=== PATIENT | female | born 1935 | race Caucasian/White ===

== ENCOUNTER → 2016-11-18 08:45 | Outpatient (CLI) | payer MEDICARE, OTHER ==
[~2016-11-18 08:45] MED LIST: ARMOUR THYROID30 MG PO; BENICAR HCT 20-1 TA1 PO; HYDROCHLOROTHIA25 MG PO
== END | disposition home or self-care (01) ==
LOC: D.CT 10-29 10:30
DX: C49.9 Malignant neoplasm of connective and soft tissue, unspecified (principal)

== ENCOUNTER → 2017-08-03 13:37 | Outpatient (CLI) | payer MEDICARE, OTHER ==
--- NOTE | ~2017-08-03 | EC ---
PATIENT:DONAVON BRENNAN DATE OF SERVICE: 08/03/17 SEX: F MEDICAL RECORD: [id number] DATE OF : 37 LOCATION:D.[facility] AGE OF PATIENT: 82 ADMISSION DATE: 08/03/17 REFERRING PHYSICIAN: INTERPRETING PHYSICIAN: PATRICK BORDEN MD ECHOCARDIOGRAM REPORT ECHO CHARGES 4 ECHO COMPLETE CLINICAL DIAGNOSIS: A-FIB/HTN/MURMUR/CHF/AVR ECHOCARDIOGRAPHIC MEASUREMENTS (adult normal given) AC root (d.<3.7cm) 3.3 cm LV Septum d (<1.2 cm> 1.8 cm Valve Excursion 0.9 cm LV Septum (systole) 2.1 cm Left Atria (s.<4.0cm> 3.3 cm LVPW d(<1.2cm) 1.5 cm RV (d.<2.3cm) 2.7 cm LVPW (sytole) 1.7 cm LV diastole(<5.6CM) 3.9 cm MV E-F(>70mm/sec) cm LV systole 1.2 cm LVOT Diameter 1.5 cm MV exc.(>10mm) cm Est.ejection fraction (50-75%) % Pericardial Effusion N DOPPLER: LVIT cm/sec A 57.0 cm/sec E 100 cm/sec LA cm/sec RVSP 38.1 mmHg LVOT 110 cm/sec AOP1/2T m/s Asc. Ao 378 cm/sec RVOT 61.0 cm/sec RA cm/sec PA 100 cm/sec AV Gradient Peak 57.3 mmHg AV Mean 34.0 mmHg AV Area 0.5 cm MV Gradient Peak 4.2 mmHg MV Mean 1.5 mmHg MV Area cm COMMENTS: Auto Body Repairer Fiberglass: David PEREZOE Prospecting Driller: Estelle Borden TAPE# PACS DATE OF SERVICE: 08/03/2017 FINDINGS: 1. Left ventricle appears to have mild left ventricular hypertrophy. There are no obvious regional wall motion abnormalities. Inflow characteristics are normal. Overall, ejection fraction is 60% to 65%. 2. The mitral valve and anterior leaflet have mild thickening. There is [id number] mitral regurgitation that is centralized. 3. The left atrium appears to be normal size, normal shape, normal function. 4. The interatrial septum is thin, but there is no evidence of ASD or PFO. ECHOCARDIOGRAM REPORT [id number] DONAVON BRENNAN 5. The right ventricle has mild right ventricular hypertrophy, but normal size and normal function. 6. The right atrium is normal size, normal function. 7. The aortic valve is difficult to visualize, appears to be thickened. There is a history of aortic valve replacement. The peak pressure gradient that we are seeing is 57 mmHg, which would indicate moderate or at least aortic stenosis depending on the size of the replacement, aortic valve. 8. The tricuspid valve has moderate tricuspid regurgitation, RVSP of 38 mmHg. 9. The pulmonic valve is not well visualized. 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 Transesophageal echo may be helpful for further evaluation. TRANSINT:[id number] Voice Confirmation ID: [id number] DOCUMENT ID: [id number] PATRICK BORDEN MD at 1214 CC: [id number] DICTATION DATE: 08/04/17 0805 DIRECTOR BIOMEDICAL ENGINEERING: 08/04/17 0828 DEP CLI 08/03/17 [id number] [place] [address]
== END | disposition home or self-care (01) ==
LOC: D.ECHO 13:30
DX: R09.89 Other specified symptoms and signs involving the circulatory and respiratory systems (principal); Z95.2 Presence of prosthetic heart valve; I48.91 Unspecified atrial fibrillation; I10 Essential (primary) hypertension; I50.9 Heart failure, unspecified; R01.1 Cardiac murmur, unspecified

== ENCOUNTER → 2017-11-11 07:50 | Outpatient (CLI) | payer MEDICARE, OTHER | END | disposition home or self-care (01) | LOC: D.CT 07:50 | DX: C49.9 Malignant neoplasm of connective and soft tissue, unspecified (principal) ==

== ENCOUNTER → 2017-12-29 09:41 | Outpatient (CLI) | payer MEDICARE, OTHER | END | disposition home or self-care (01) | LOC: D.CT 09:41 | DX: I61.9 Nontraumatic intracerebral hemorrhage, unspecified (principal) ==

== ENCOUNTER → 2018-07-28 08:59 | Outpatient (CLI) | payer MEDICARE, OTHER ==
[2018-07-28 09:59] LABS: BASOPHILS 0.4 % (0-2); EOSINOPHILS 3.7 % (0-7); HEMATOCRIT 40.2 % (36.0-48.0); HEMOGLOBIN 13.5 g/dL (12-16); IMMATURE GRANULOCYTES 0.2 % (0-5); LYMPHOCYTES 21.8 % (15-50); MCH 29.7 pg (26.0-34.0); MCHC 33.6 g/dL (31.0-37.0); MCV 88.5 fL (80.0-100.0); MEAN PLATELET VOLUME 10.2 fL (7.4-10.4); MONOCYTES 6.6 % (2-11); NEUTROPHILS 67.3 % (40-80); PLATELET COUNT 175 10x3/uL (130-400); RBC 4.54 10x6/uL (4.00-5.40); RDW 12.9 % (11.5-14.5); WBC 5.5 10x3/uL (4.8-10.8)
[2018-07-28 10:26] LABS: ALBUMIN 4.1 g/dL (3.4-5.0); ALKALINE PHOSPHATASE 109 U/L (46-116); ALT (SGPT) 23 U/L (10-68); BILIRUBIN - TOTAL 0.46 mg/dL (0.2-1.3); CALC OSMOLALITY 280 mosm/kg (275-300); CALCIUM 9.4 mg/dL (8.5-10.1); CARBON DIOXIDE 30.5 mmol/L (21.0-32.0); CHLORIDE - SERUM 104 mmol/L (98-107); CREATININE - SERUM 0.6 mg/dL (0.6-1.3); FERRITIN 57 ng/mL (3-244); GLUCOSE 92 mg/dL (74-106); POTASSIUM - SERUM 4.1 mmol/L (3.5-5.1); SODIUM 141 mmol/L (136-145); T4 THYROXINE 5.7 ug/dL (4.7-13.3); THYROID STIMULATING HORMONE 0.23 uIU/mL (0.36-3.74); TRIGLYCERIDE 75 mg/dL (30-200); UREA NITROGEN 13 mg/dL (7-18); eGFR NON AFRICAN AMERICAN > 90 mL/min (90-120)
[2018-07-28 10:39] LABS: APPEARANCE HAZY (CLEAR); BILIRUBIN NEGATIVE (NEGATIVE); COLOR STRAW (YELLOW); GLUCOSE NEGATIVE (NEGATIVE); KETONE NEGATIVE (NEGATIVE); NITRITE NEGATIVE (NEGATIVE); PROTEIN 1+ mg/dL (NEGATIVE); SPECIFIC GRAVITY 1.005 (1.005-1.020); UROBILINOGEN NORMAL (NORMAL)
[2018-07-28 10:44] LABS: BACTERIA FEW /hpf (NONE SEEN); EPITHELIAL CELLS 0-5 /hpf (0-5); MUCUS <1+ /lpf (NONE SEEN); RED CELLS - URINE NONE SEEN /hpf (0-5)
== END | disposition home or self-care (01) ==
LOC: D.LAB 08:59
PROVIDERS: Family Medicine
DX: Z13.0 Encounter for screening for diseases of the blood and blood-forming organs and certain disorders involving the immune mechanism (principal)

== ENCOUNTER 2018-10-03 12:18 | Observation (INO) | payer MEDICARE, OTHER ==
[~2018-10-03] VITALS: Ht 165.1 cm; Wt 54.5 kg
--- NOTE | ~2018-10-03 | HP ---
PATIENT: DONAVON BLAIR MEDICAL RECORD: [id number] ACCOUNT: [id number] LOCATION:[facility] : 37 ADMISSION DATE: 10/03/18 PCP: MARINA MCCONNELL DO HISTORY AND PHYSICAL EXAMINATION DIAGNOSES: 1. Non-Q-wave myocardial infarction. 2. Coronary artery disease. 3. Hypertension. 4. History of hemorrhagic CVA. 5. Hypothyroidism, on replacement. HISTORY OF PRESENT ILLNESS: Mrs. Blair presents with chest pain. Her troponin is positive for myocardial infarction. She has an improvement in her pain with the nitropatch that she is on. Her heart rate is in the 50s, hence no beta blockade was undertaken. Her systolic blood pressure is in the 100-110 range. She does not want to entertain the idea of cardiac catheterization and stenting due to the fact she was told in the past that if any blood thinner even aspirin would put her at great risk of recurrent hemorrhagic CVA for which she is still recovering from, this was approximately 1 year ago in [place] that she had this CVA. Her EKG is only showing a previous anterior myocardial infarction, but no acute ST-T changes. PHYSICAL EXAMINATION: GENERAL APPEARANCE: Well-nourished, well-developed, appears stated age. Level of distress, comfortable. PSYCHIATRIC: Mental status, alert, normal affect. Orientation, oriented to time, place and person. EYES: Lids and conjunctiva, noninjected. No discharge, no pallor. ENT: Lips, teeth, gums, normal dentition. Oropharynx, no cyanosis, no pallor. NECK: Carotid arteries, bilateral normal upstroke, no bruits, no thrills. JUGULAR VEINS: No jugular venous pressure or distention. CERVICAL LYMPH NODES: Nontender, nonenlarged. THYROID: Not enlarged. Nontender. No nodules. LUNGS: Respiratory effort, unlabored. CHEST: Normal curvature. No thoracic deformity. No chest wall tenderness. Percussion, resonant. Auscultation, clear. No wheezes, no rales, no rhonchi. CARDIOVASCULAR: Precordial exam, nondisplaced. No heaves or pericardial thrills. Rate and rhythm, regular. Heart sounds, normal S1, normal S2. No S3, no gallop, no rub. Systolic murmur, not heard. Diastolic murmur, not heard. EXTREMITIES: No cyanosis, no edema. Peripheral pulses, full and equal in all extremities, except as noted. No bruits appreciated. ABDOMEN: Soft, nondistended. Normal aorta. No bruit. Nontender. No masses. Liver, nontender, no hepatomegaly. Spleen, nontender, no splenomegaly. MUSCULOSKELETAL: No joint tenderness. No joint swelling. No erythema. NEUROLOGICAL: Normal gait, normal strength, normal tone. SKIN: Warm and dry. OVERALL IMPRESSION: Non-Q-wave myocardial infarction with medical management as per the patient. We will continue the nitropatch. We will add a statin. No beta blockade will be undertaken secondary to her resting bradycardia. We will see her back in the office as scheduled in 2 months, sooner if she has recurrent symptoms. TRANSINT:[id number] Voice Confirmation ID: [id number] DOCUMENT ID: [id number] HISTORY AND PHYSICAL [id number] DONAVON BLAIR JEFFREY MD CC: [id number] DICTATION DATE: 10/04/18915 CUTTER FINISHER: 10/04/18 1023 DEP CLI 10/04/18 [id number] [place] [address]
--- NOTE | ~2018-10-03 | DS ---
PATIENT:DONAVON BLAIR :37 MEDICAL RECORD: [id number] DISCHARGE SUMMARY ADMISSION DATE: 10/03/18 DISCHARGE DATE: 10/04/18 DATE OF DISCHARGE: 10/04/2018 DIAGNOSES: 1. Non-Q-wave myocardial infarction. 2. Hypertension. 3. Coronary artery disease. 4. Previous hemorrhagic cerebrovascular accident. 5. Hypothyroidism, on replacement. HOSPITAL COURSE: Mrs. Blair presents with chest discomfort, found to have a non-Q-wave myocardial infarction; however, did not want cardiac catheterization secondary to the history of a head hemorrhagic CVA and did not want stents due to being on blood thinners for the risk of recurrent hemorrhagic CVA. She was placed on a nitrate and a statin. No beta blockade was undertaken secondary to resting bradycardia and she was discharged home to follow up with Dr. Villanueva in 2 months, will call if she has recurrent symptomatology. TRANSINT:[id number] Voice Confirmation ID: [id number] DOCUMENT ID: [id number] RADHA BERNSTEIN MD CC: [id number] DICTATION DATE: 10/04/18917 AIRFIELD OPERATIONS SPECIALIST: 10/05/18 0445 DEP CLI 10/04/18 [id number] [place] [address]
[2018-10-03] MEDS ORDERED: ARMOUR THYROID90 MG PO (12:28)
[2018-10-03] MEDS ORDERED: NORVASC5 MG PO (12:29)
[2018-10-03] MEDS ORDERED: LISINOPRIL20 MG PO (12:29)
[2018-10-03 12:56] LABS: BASOPHILS 0.5 % (0-2); EOSINOPHILS 2.8 % (0-7); HEMATOCRIT 37.3 % (36.0-48.0); HEMOGLOBIN 12.7 g/dL (12-16); IMMATURE GRANULOCYTES 0.2 % (0-5); LYMPHOCYTES 17.7 % (15-50); MCH 29.8 pg (26.0-34.0); MCV 87.6 fL (80.0-100.0); MEAN PLATELET VOLUME 9.9 fL (7.4-10.4); MONOCYTES 7.6 % (2-11); NEUTROPHILS 71.2 % (40-80); PLATELET COUNT 159 10x3/uL (130-400); RBC 4.26 10x6/uL (4.00-5.40); RDW 13.1 % (11.5-14.5); WBC 5.8 10x3/uL (4.8-10.8)
[2018-10-03 13:22] LABS: APTT 26.2 SECONDS (22.8-39.4); INR 0.99 (0.85-1.17); PROTIME 12.6 SECONDS (11.6-15.0)
[2018-10-03 13:33] LABS: ALBUMIN 3.4 g/dL (3.4-5.0); ALKALINE PHOSPHATASE 100 U/L (46-116); ALT (SGPT) 21 U/L (10-68); BILIRUBIN - TOTAL 0.29 mg/dL (0.2-1.3); CALC OSMOLALITY 279 mosm/kg (275-300); CALCIUM 8.8 mg/dL (8.5-10.1); CARBON DIOXIDE 28.1 mmol/L (21.0-32.0); CHLORIDE - SERUM 105 mmol/L (98-107); CKMB 0.8 U/L (0.0-3.6); CREATINE KINASE 50 UL (21-215); CREATININE - SERUM 0.6 mg/dL (0.6-1.3); GLUCOSE 96 mg/dL (74-106); MAGNESIUM - SERUM 2.1 mg/dL (1.8-2.4); POTASSIUM - SERUM 4.3 mmol/L (3.5-5.1); PROTEIN - SERUM 7.1 g/dL (6.4-8.2); SODIUM 140 mmol/L (136-145); UREA NITROGEN 14 mg/dL (7-18); eGFR NON AFRICAN AMERICAN > 90 mL/min (90-120)
[2018-10-03 13:35] LABS: TROPONIN-I 0.265 ng/mL (0.000-0.060)
[2018-10-03 16:08] VITALS: Ht 165.1 cm; Wt 54.5 kg
[2018-10-03 20:00] VITALS: BP 140/77
[2018-10-04] VITALS: BP 185/71
[2018-10-04 04:00] VITALS: BP 121/64
[2018-10-04 06:34] LABS: BASOPHILS 0.7 % (0-2); EOSINOPHILS 3.6 % (0-7); HEMATOCRIT 39.5 % (36.0-48.0); HEMOGLOBIN 13.5 g/dL (12-16); LYMPHOCYTES 22.7 % (15-50); MCH 29.7 pg (26.0-34.0); MCHC 34.2 g/dL (31.0-37.0); MCV 86.8 fL (80.0-100.0); MONOCYTES 7.6 % (2-11); NEUTROPHILS 65.4 % (40-80); PLATELET COUNT 168 10x3/uL (130-400); RBC 4.55 10x6/uL (4.00-5.40); RDW 12.9 % (11.5-14.5); WBC 4.5 10x3/uL (4.8-10.8)
[2018-10-04 07:11] LABS: ALBUMIN 3.4 g/dL (3.4-5.0); ALKALINE PHOSPHATASE 105 U/L (46-116); ALT (SGPT) 26 U/L (10-68); CALC OSMOLALITY 282 mosm/kg (275-300); CALCIUM 9.2 mg/dL (8.5-10.1); CARBON DIOXIDE 29.8 mmol/L (21.0-32.0); CHLORIDE - SERUM 106 mmol/L (98-107); CREATININE - SERUM 0.6 mg/dL (0.6-1.3); GLUCOSE 81 mg/dL (74-106); PROTEIN - SERUM 7.2 g/dL (6.4-8.2); SODIUM 142 mmol/L (136-145); UREA NITROGEN 16 mg/dL (7-18); eGFR NON AFRICAN AMERICAN > 90 mL/min (90-120)
[2018-10-04 07:12] LABS: TROPONIN-I 0.177 ng/mL (0.000-0.060)
[2018-10-04 08:55] VITALS: BP 145/77
[2018-10-04] MEDS ORDERED: PRAVACHOL20 MG PO (10:01)
[2018-10-04] MEDS ORDERED: NITRO-DUR0.2 MG TRANSDERM (10:02)
[2018-10-04] MEDS ORDERED: NITROQUICK0.4 MG SL (10:03)
== END 2018-10-04 11:14 | disposition home or self-care (01) ==
LOC: D.ER 12:18 → D.OPS 12:18 → D.M2 12:18 → OBSVTIME 13:41 → D.M2 13:41 → EDSTATUS 13:43 → D.OPS 14:05 → D.M2 14:05 → D.OPS 10-04 11:14 → D.M2 10-04 11:14
PROVIDERS: Emergency Medicine; ADMIT Internal Medicine Interventional Cardiology; ATTEND Internal Medicine Interventional Cardiology
DX: I21.4 Non-ST elevation (NSTEMI) myocardial infarction (principal); I10 Essential (primary) hypertension; I25.10 Atherosclerotic heart disease of native coronary artery without angina pectoris; Z86.73 Personal history of transient ischemic attack (TIA), and cerebral infarction without residual deficits; E03.9 Hypothyroidism, unspecified; R00.1 Bradycardia, unspecified

== ENCOUNTER → 2019-02-07 10:25 | Outpatient (CLI) | payer MEDICARE, OTHER ==
[~2019-02-07 10:25] MED LIST changes: +ARMOUR THYROID90 MG PO; +LISINOPRIL20 MG PO; +NITRO-DUR0.2 MG TRANSDERM; +NITROQUICK0.4 MG SL; +NORVASC5 MG PO; +PRAVACHOL20 MG PO
--- NOTE | 2019-02-09 14:32 | EC ---
PATIENT:DONAVON BRENNAN DATE OF SERVICE: 02/07/19 SEX: F MEDICAL RECORD: [id number] DATE OF : 37 LOCATION:D[facility] AGE OF PATIENT: 83 ADMISSION DATE: 02/07/19 REFERRING PHYSICIAN: INTERPRETING PHYSICIAN: RADHA CURTIS MD ECHOCARDIOGRAM REPORT ECHO CHARGES 4 ECHO COMPLETE Date: 02/07/19 CLINICAL DIAGNOSIS: AVR ECHOCARDIOGRAPHIC MEASUREMENTS (adult normal given) AC root (d.<3.7cm) 2.2 cm LV Septum d (<1.2 cm> 0.8 cm Valve Excursion 0.7 cm LV Septum (systole) 1.1 cm Left Atria (s.<4.0cm> 2.6 cm LVPW d(<1.2cm) 0.8 cm RV (d.<2.3cm) 3.4 cm LVPW (sytole) 0.9 cm LV diastole(<5.6CM) 4.1 cm MV E-F(>70mm/sec) cm LV systole 3.0 cm LVOT Diameter 1.5 cm MV exc.(>10mm) cm Est.ejection fraction (50-75%) % DOPPLER: LVIT cm/sec A 73 cm/sec E 84 cm/sec LA cm/sec RVSP 28.1 mmHg LVOT 97 cm/sec AOP1/2T m/s Asc. Ao 436 cm/sec RVOT 45 cm/sec RA cm/sec PA 52 cm/sec AV Gradient Peak 76.2 mmHg AV Mean 46.2 mmHg AV Area 0.5 cm MV Gradient Peak 6.3 mmHg MV Mean 3.3 mmHg MV Area cm COMMENTS: Car Audio Installer: Noreen [facility] Carroting Machine Operator: 1 Dr. Curtis TAPE# PACS Pericardial Effusion N DATE OF SERVICE: 02/07/2019 ECHOCARDIOGRAM FINDINGS: 1. Left ventricular chamber size is within normal limits. Left ventricular systolic function is normal at 60%. 2. Left atrium, right atrium, and right ventricular chamber sizes are within normal limits. 3. Valvular structures: Aortic valve is replaced with a mechanical prosthesis ECHOCARDIOGRAM REPORT [id number] DONAVON BRENNAN with normal structure and function in this position; however, the valve area calculates to 0.5 cm-squared and there is a gradient of 72 mm across the valve. The remaining valvular structures have normal structure and motion. 4. Doppler interrogation elsewise reveals mild mitral regurgitation, moderate tricuspid regurgitation, no other valvular insufficiency or stenosis. Pulmonary systolic pressure is estimated 28 mmHg. 5. No evidence of pericardial effusion or left ventricular thrombus. TRANSINT:[id number] Voice Confirmation ID: [id number] DOCUMENT ID: [id number] RADHA CURTIS MD at 1432 CC: [id number] DICTATION DATE: 02/07/19 1605 VARNISH REMOVER: 02/07/192056 [facility] CLI 02/07/19 [id number] [place] [address]
== END | disposition home or self-care (01) ==
LOC: D.ECHO 02-03 10:05
PROVIDERS: ATTEND Internal Medicine Cardiovascular Disease
DX: I35.9 Nonrheumatic aortic valve disorder, unspecified (principal)

== ENCOUNTER 2019-12-12 08:38 | Outpatient (CLI) | payer MEDICARE, OTHER ==
[~2019-12-12] VITALS: Ht 165.1 cm; Wt 56.4 kg
[2019-12-12 09:11] VITALS: BP 148/60; Ht 165.1 cm; Wt 56.4 kg
== END 2019-12-12 12:34 | disposition home or self-care (01) ==
LOC: D.OPS 08:38
PROVIDERS: ATTEND Internal Medicine Cardiovascular Disease
DX: Z95.2 Presence of prosthetic heart valve (principal)